=== PATIENT | female | born 1980 | race Caucasian/White ===

== ENCOUNTER 2016-09-14 20:59 | Emergency (ER) | payer SELFPAY ==
[~2016-09-14 20:59] MED LIST: ANTIVERT25 M1 PO; COMPAZINE10 MG PO; NO HOME MEDICATION XX
[2016-09-14] MEDS ORDERED: SEPTRA (22:53)
[2016-09-14] MEDS ORDERED: ZYRTEC10 M7 PO (22:53)
== END 2016-09-15 00:23 ==
LOC: EDMED 20:59
PROC: 0HQFXZZ Repair Right Hand Skin, External Approach (ICD-10-PCS; principal; 2016-09-14)
DX: S61.210A Laceration without foreign body of right index finger without damage to nail, initial encounter (principal); Z88.0 Allergy status to penicillin; Z88.1 Allergy status to other antibiotic agents; Z88.8 Allergy status to other drugs, medicaments and biological substances; W45.8XXA Other foreign body or object entering through skin, initial encounter; Y92.009 Unspecified place in unspecified non-institutional (private) residence as the place of occurrence of the external cause